=== PATIENT | female | born 1950 ===

== ENCOUNTER 2020-08-29 14:57 | Emergency (ER) | payer MEDICARE, OTHER ==
--- NOTE | 2020-08-29 15:45 | EDM.PDOC ---
<Yordan Irene Ricardo - Last Filed: 08/29/20 18:14> ED HPI GENERAL MEDICAL PROBLEM - General Chief Complaint: Cardiovascular Problem Stated Complaint: AMBULANCE Time Seen by Provider: 08/29/20 15:36 Source of Information: Reports: Patient History Limitations: Reports: No Limitations - History of Present Illness INITIAL COMMENTS - FREE TEXT/NARRATIVE: 70 y/o F c/o intermittent pain between her shoulder blades and CP. The pain is sharp in nature and lasts minutes to hours. On Wednesday pt began experiencing pain in her R lower back that gradually began progressing up her back and then finally settled between her shoulder blades. August 14 pt was put on Levothyroxine by her PA Lai Snow. Pt states she took the med at night for the first three nights and it gave her a severe vaughn which prevented her from sleeping. Pt contacted her provider who had her begin taking the medication in the morning. Yesterday pt had 3 episodes where she became severely shaky and cold all of which lasted around an hour. At the present the pt is pain free but her clothes are soaked from perspiration and her heart feels like its beating fast. Denies fever, cough, vision prob, nausea db, abd pn, constipation, trouble with urination, diarrhea, drugs or etoh. Onset: Gradual Duration: Day(s): Location: Reports: Generalized Quality: Reports: Sharp Severity: Moderate Improves with: Reports: None Worsens with: Reports: None - Related Data Allergies Allergy/AdvReac Type Severity Reaction Status Date / Time No Known Allergies Allergy Verified 08/29/20 15:46 Home Meds: Home Meds Furosemide 20 mg PO DAILY 08/29/20 [History] Irbesartan [Avapro] 150 mg PO DAILY 08/29/20 [History] Levothyroxine 25 mcg PO ACBREAKFAST 08/29/20 [History] Zolpidem [Ambien] 10 mg PO BEDTIME 08/29/20 [History] atorvaSTATin [Lipitor] 20 mg PO BEDTIME 08/29/20 [History] ED ROS GENERAL - Review of Systems Review Of Systems: Comprehensive ROS is negative, except as noted in HPI. ED EXAM, GENERAL - Physical Exam Exam: See Below Exam Limited By: No Limitations General Appearance: Alert, WD/WN, No Apparent Distress Eye Exam: Bilateral Eye: PERRL Ears: Normal External Exam, Normal Canal, Hearing Grossly Normal, Normal TMs Ear Exam: Bilateral Ear: Auricle Normal, Canal Normal, TM normal Nose: Normal Inspection, Normal Mucosa, No Blood Throat/Mouth: Normal Inspection, Normal Lips, Normal Teeth, Normal Gums, Normal Oropharynx, Normal Voice, No Airway Compromise Head: Atraumatic, Normocephalic Neck: Normal Inspection, Supple, Non-Tender, Full Range of Motion Respiratory/Chest: No Respiratory Distress, Lungs Clear, Normal Breath Sounds, No Accessory Muscle Use, Chest Non-Tender Cardiovascular: Normal Peripheral Pulses, Regular Rate, Rhythm, No Edema, No Gallop, No JVD, No Murmur, No Rub, Tachycardia GI/Abdominal: Soft, Non-Tender (Female) Exam: Deferred Rectal (Female) Exam: Deferred Back Exam: Normal Inspection, Full Range of Motion Extremities: Normal Inspection, Normal Range of Motion, Non-Tender, Normal Capillary Refill, No Pedal Edema Neurological: Alert, Oriented, CN II-XII Intact, Normal Cognition, Normal Gait, Normal Reflexes, No Motor/Sensory Deficits Psychiatric: Normal Affect, Normal Mood Skin Exam: Warm, Intact, Diaphoretic Departure - Departure Time of Disposition: 18:14 Disposition: DC/Tfer to [facility] 02 Reason for Transfer *Q: Primary PCI Indicated Clinical Impression: Cholecystitis, acute with cholelithiasis Qualifiers: Biliary obstruction: without biliary obstruction Qualified Code(s): K80.00 - Calculus of gallbladder with acute cholecystitis without obstruction Forms: ED Department Discharge, Interfacility Transfer EMTPASQUALE <Nii Sauceda - Last Filed: 08/29/20 18:16> Course - Vital Signs Last Recorded V/S: Last Vital Signs Temp 97.9 F 08/29/20 15:00 Pulse 105 H 08/29/20 15:00 Resp 18 08/29/20 15:00 BP 116/57 L 08/29/20 15:00 Pulse Ox 100 08/29/20 15:00 - Orders/Labs/Meds Orders: Active Orders 24 hr Category Date Time Status EKG Documentation Completion [RC] STAT Care 08/29/20 15:34 Active COVID-19/FLU A+B [MOLEC] Stat Lab 08/29/20 17:08 Received CULTURE BLOOD [BC] Stat Lab 08/29/20 17:25 Received CULTURE BLOOD [BC] Stat Lab 08/29/20 17:36 Received CULTURE URINE [RM] Stat Lab 08/29/20 16:22 Received Blood Culture x2 Reflex Set [OM.PC] Stat Oth 08/29/20 17:07 Ordered Labs: Laboratory Tests 08/29/20 08/29/20 08/29/20 Range/Units 15:10 15:10 15:10 WBC 22.8 H (5.0-10.0) 10^3/uL RBC 3.91 L (4.2-5.4) 10^6/uL Hgb 12.1 (12.0-16.0) g/dL Hct 36.4 L (37.0-47.0) % MCV 93.1 (80-100) fL MCH 30.9 (27.0-34.0) pg MCHC 33.2 (33.0-35.0) g/dL Plt Count 193 D (150-450) 10^3/uL Neut % (Auto) 91.2 H (42.2-75.2) % Lymph % (Auto) 2.2 L (20.5-50.1) % [place] % (Auto) 6.5 (2-8) % Eos % (Auto) 0.0 L (1.0-3.0) % Baso % (Auto) 0.1 (0.0-1.0) % Add Manual Diff Yes Neutrophils % (Manual) 80 H (42-75) % Band Neutrophils % 11 % Lymphocytes % (Manual) 4 L (20-50) % Monocytes % (Manual) 5 (2-8) % Sodium 135 L (136-145) mmol/L Potassium 4.0 (3.5-5.1) mmol/L Chloride 98 (98-107) mmol/L Carbon Dioxide 24 (21-32) mmol/L Anion Gap 17.0 H (7-13) mEq/L BUN 31 H (7-18) mg/dL Creatinine 1.54 H (0.55-1.02) mg/dL Est Cr Clr Drug Dosing TNP Estimated GFR (MDRD) 33 BUN/Creatinine Ratio 20.1 (No establ ref range) Glucose 184 H (70-99) mg/dL Lactic Acid 2.3 H* (0.4-2.0) mmol/L Calcium 8.6 (8.5-10.1) mg/dL Magnesium 1.8 (1.8-2.4) mg/dL Total Bilirubin 1.5 H (0.2-1.0) mg/dL AST 29 (15-37) U/L ALT 34 (14-59) U/L Alkaline Phosphatase 139 H (46-116) U/L Troponin I < 0.017 (0.000-0.056) ng/mL C-Reactive Protein 24.8 H (0.0-0.9) mg/dL Total Protein 6.8 (6.4-8.2) g/dL Albumin 3.3 L (3.4-5.0) g/dL Globulin 3.5 Albumin/Globulin Ratio 0.94 Amylase (25-115) U/L Lipase (73-393) U/L Free T4 1.48 H (0.76-1.46) ng/dL TSH, Ultra Sensitive 0.86 (0.36-3.74) uIU/mL Urine Color (YELLOW) Urine Appearance (CLEAR) Urine pH (5.0-9.0) Ur Specific [place] (1.005-1.030) Urine Protein (NEGATIVE) Urine Glucose (UA) (NEGATIVE) Urine Ketones (NEGATIVE) Urine Occult Blood (NEGATIVE) Urine Nitrite (NEGATIVE) Urine Bilirubin (NEGATIVE) Urine Urobilinogen (0.2-1.0) mg/dL Ur Leukocyte Esterase (NEGATIVE) U Hyaline Cast (Auto) Urine RBC /HPF Urine WBC (0-5/HPF) /HPF Ur Epithelial Cells (NOT SEEN) /HPF Urine Bacteria (0-FEW/HPF) /HPF Urine Mucus (NOT SEEN) /LPF 08/29/20 08/29/20 Range/Units 15:10 16:22 WBC (5.0-10.0) 10^3/uL RBC (4.2-5.4) 10^6/uL Hgb (12.0-16.0) g/dL Hct (37.0-47.0) % MCV (80-100) fL MCH (27.0-34.0) pg MCHC (33.0-35.0) g/dL Plt Count (150-450) 10^3/uL Neut % (Auto) (42.2-75.2) % Lymph % (Auto) (20.5-50.1) % [place] % (Auto) (2-8) % Eos % (Auto) (1.0-3.0) % Baso % (Auto) (0.0-1.0) % Add Manual Diff Neutrophils % (Manual) (42-75) % Band Neutrophils % % Lymphocytes % (Manual) (20-50) % Monocytes % (Manual) (2-8) % Sodium (136-145) mmol/L Potassium (3.5-5.1) mmol/L Chloride (98-107) mmol/L Carbon Dioxide (21-32) mmol/L Anion Gap (7-13) mEq/L BUN (7-18) mg/dL Creatinine (0.55-1.02) mg/dL Est Cr Clr Drug Dosing Estimated GFR (MDRD) BUN/Creatinine Ratio (No establ ref range) Glucose (70-99) mg/dL Lactic Acid (0.4-2.0) mmol/L Calcium (8.5-10.1) mg/dL Magnesium (1.8-2.4) mg/dL Total Bilirubin (0.2-1.0) mg/dL AST (15-37) U/L ALT (14-59) U/L Alkaline Phosphatase (46-116) U/L Troponin I (0.000-0.056) ng/mL C-Reactive Protein (0.0-0.9) mg/dL Total Protein (6.4-8.2) g/dL Albumin (3.4-5.0) g/dL Globulin Albumin/Globulin Ratio Amylase 13 L (25-115) U/L Lipase 31 L (73-393) U/L Free T4 (0.76-1.46) ng/dL TSH, Ultra Sensitive (0.36-3.74) uIU/mL Urine Color [place] (YELLOW) Urine Appearance Slightly cloudy (CLEAR) Urine pH 5.0 (5.0-9.0) Ur Specific [place] >= 1.030 (1.005-1.030) Urine Protein 30 H (NEGATIVE) Urine Glucose (UA) Negative (NEGATIVE) Urine Ketones 15 H (NEGATIVE) Urine Occult Blood Negative (NEGATIVE) Urine Nitrite Negative (NEGATIVE) Urine Bilirubin Moderate H (NEGATIVE) Urine Urobilinogen 1.0 (0.2-1.0) mg/dL Ur Leukocyte Esterase Small H (NEGATIVE) U Hyaline Cast (Auto) Many Urine RBC 0-5 /HPF Urine WBC 20-30 H (0-5/HPF) /HPF Ur Epithelial Cells Many H (NOT SEEN) /HPF Urine Bacteria Few (0-FEW/HPF) /HPF Urine Mucus Few H (NOT SEEN) /LPF Meds: Medications Discontinued Medications Generic Name Dose Route Start Last Admin Trade Name Quocq PRN Reason Stop Dose Admin Sodium Chloride 1,000 mls @ 999 mls/hr 08/29/20 16:20 08/29/20 16:49 Normal Saline IV 08/29/20 17:20 999 mls/hr .BOLUS ONE Administration Piperacillin Sod/Tazobactam 100 mls @ 200 mls/hr 08/29/20 16:22 08/29/20 16:49 Sod 3.375 gm/ Sodium Chloride IV 08/29/20 16:51 200 mls/hr ONETIME ONE Administration Sodium Chloride 1,000 mls @ 999 mls/hr 08/29/20 16:30 08/29/20 17:00 Normal Saline IV 08/29/20 17:30 999 mls/hr .BOLUS ONE Administration - Radiology Interpretation Free Text/Narrative:: [facility] Final Radiology Report Call: [phone] assistance Online chat: [email or web address] Name: NANCY MARIE Age: 70Years F Date: 08/29/2020 SSN: -- : 1950 Study: CR CHEST 2V Requesting Physician: Yordan Irene Images: 2 Addl Studies: Provided Clinical History: pain between the shoulder blades with white count Contrast: Contrast Medium: Contrast Amount: Contrast Method: CONFIDENTIALITY STATEMENT This report is intended only for use by the referring physician, and only in accordance with law. If you received this in error, call [phone]. Page 1 of 1 PROCEDURE INFORMATION: Exam: XR Chest Exam date and time: 08/29/2020 4:42 PM Age: 70 years old Clinical indication: Other: Pain; Additional info: Pain between the shoulder blades with white count TECHNIQUE: Imaging protocol: XR of the chest. Views: 2 views. COMPARISON: No relevant prior studies available. FINDINGS: Lungs: There is mild nonspecific patchy linear density at right lung base which could be atelectatic, or inflammatory. The left lung is clear. Pleural spaces: No pleural effusion. No pneumothorax. Heart/Mediastinum: The heart is not enlarged. A moderate hiatal hernia is present. Bones/joints: No acute bony findings are identified. IMPRESSION: There is mild nonspecific patchy linear density at right lung base which could be atelectatic, or inflammatory. Thank you for allowing us to participate in the care of your patient. Dictated and Authenticated by: Coy Looney MD 08/29/2020 5:09 PM Central Time ([place] & [place]) [facility] Final Radiology Report Call: [phone] assistance Online chat: [email or web address] Name: NANCY MARIE Age: 70Years F Date: 08/29/2020 SSN: -- : 1950 Study: CT ABDOMEN PELVIS WO CONT Requesting Physician: Yordan Irene Images: [id number] Addl Studies: Provided Clinical History: sepsis with abdominal pain, elevated bilirubin,pn Contrast: Without Contrast Medium: Contrast Amount: Contrast Method: Page 1 of 2 PROCEDURE INFORMATION: Exam: CT Abdomen And Pelvis Without Contrast Exam date and time: 08/29/2020 5:08 PM Age: 70 years old Clinical indication: Other: Pain; Additional info: Sepsis with abdominal pain, elevated bilirubin, pn TECHNIQUE: Imaging protocol: Computed tomography of the abdomen and pelvis without contrast. Radiation optimization: All CT scans at this facility use at least one of these dose optimization techniques: automated exposure control; mA and/or kV adjustment per patient size (includes targeted exams where dose is matched to clinical indication); or iterative reconstruction. COMPARISON: No relevant prior studies available. FINDINGS: Lungs: The visualized lung bases are clear. Minor non-specific patchy linear density at both bases. These changes could be inflammatory or could reflect atelectasis. Mediastinal space: A large hiatal hernia is present. Liver: Mild hepatomegaly.The liver is otherwise unremarkable. Gallbladder and bile ducts: The gallbladder is mildly distended. Multiple faintly opaque gallstones suspect in the gallbladder lumen. Gallbladder wall is thickened and edematous. Common bile duct diameter is 6 mm. There is no intrahepatic bile duct dilation. Pancreas: The pancreas is undergone extensive fatty replacement. No focal pancreatic abnormality seen. Spleen: The spleen is normal. Adrenal glands: The adrenal glands are normal. Kidneys and ureters: 2 mm calculus lower pole right kidney. Renal contours lobular. Renal cortices are suboptimally assessed. There is no evidence of hydronephrosis. The ureters are normal. Stomach and bowel: There is no evidence of colitis/diverticulitis. NANCY MARIE | Final Radiology Report CONFIDENTIALITY STATEMENT This report is intended only for use by the referring physician, and only in accordance with law. If you received this in error, call [phone]. Page 2 of 2 Appendix: A normal appendix is identified. Intraperitoneal space: Question collateral vessels in the root of the mesentery and about the distal esophagus and proximal stomach. The umbilical vein is prominent may be recanalized. Vasculature: There is moderate diffuse calcific atherosclerotic plaque. There is no aortic aneurysm. Lymph nodes: No pelvic adenopathy. There is no adenopathy. Urinary bladder: Bladder is normal. Reproductive: Uterine calcifications suggest the presence of uterine leiomyomata. No adnexal mass. Bones/joints: Grade 1 degenerative spondylolisthesis L4 upon 5. Soft tissues: See "Intraperitoneal space" finding. IMPRESSION: 1. Abnormal gallbladder. Correlate with LFTs. Rule out cholecystitis. 2. No biliary ductal dilatation. 3. Mild hepatomegaly. Question portal hypertension. 4. Atrophic pancreas. 5. Nonobstructing right renal calculus. Additional renal cortical assessment could be considered. The renal cortices are suboptimally assessed and the kidneys have a lobular contour. 6. Other findings as described Thank you for allowing us to participate in the care of your patient. Dictated and Authenticated by: Coy Looney MD 08/29/2020 5:36 PM Central Time ([place] & [place]) - Re-Assessments/Exams Free Text/Narrative Re-Assessment/Exam: 08/29/20 I personally performed or re-performed the physical examination and medical decision making. I have verified all student documentation or findings, including history, physical exam and/or medical decision making. Departure - Departure Time of Disposition: 17:56 Condition: Fair, Serious Sepsis Event Note (ED) - Focused Exam Vital Signs: Vital Signs Temp Pulse Resp BP Pulse Ox 08/29/20 15:00 97.9 F 105 H 18 116/57 L 100
[2020-08-29 16:06] LABS: CHLORIDE,CL 98 mmol/L (98-107); SODIUM,NA 135 mmol/L (136-145)
[2020-08-29] MEDS ORDERED: Sodium Chloride 0.9% 1,000 ML IV ONE ×2 (16:20→16:30)
[2020-08-29] MEDS ORDERED: Piperacillin/Tazobactam 3.375 GM in Sodium Chloride 0.9% 100 ML IV ONE (16:22)
--- NOTE | 2020-08-29 17:09 | CR ---
PROCEDURE INFORMATION: Exam: XR Chest Exam date and time: 08/29/2020 4:42 PM Age: 70 years old Clinical indication: Other: Pain; Additional info: Pain between the shoulder blades with white count TECHNIQUE: Imaging protocol: XR of the chest. Views: 2 views. COMPARISON: No relevant prior studies available. FINDINGS: Lungs: There is mild nonspecific patchy linear density at right lung base which could be atelectatic, or inflammatory. The left lung is clear. Pleural spaces: No pleural effusion. No pneumothorax. Heart/Mediastinum: The heart is not enlarged. A moderate hiatal hernia is present. Bones/joints: No acute bony findings are identified. IMPRESSION: There is mild nonspecific patchy linear density at right lung base which could be atelectatic, or inflammatory.
--- NOTE | 2020-08-29 17:37 | CT ---
PROCEDURE INFORMATION: Exam: CT Abdomen And Pelvis Without Contrast Exam date and time: 08/29/2020 5:08 PM Age: 70 years old Clinical indication: Other: Pain; Additional info: Sepsis with abdominal pain, elevated bilirubin, pn TECHNIQUE: Imaging protocol: Computed tomography of the abdomen and pelvis without contrast. Radiation optimization: All CT scans at this facility use at least one of these dose optimization techniques: automated exposure control; mA and/or kV adjustment per patient size (includes targeted exams where dose is matched to clinical indication); or iterative reconstruction. COMPARISON: No relevant prior studies available. FINDINGS: Lungs: The visualized lung bases are clear. Minor non-specific patchy linear density at both bases. These changes could be inflammatory or could reflect atelectasis. Mediastinal space: A large hiatal hernia is present. Liver: Mild hepatomegaly.The liver is otherwise unremarkable. Gallbladder and bile ducts: The gallbladder is mildly distended. Multiple faintly opaque gallstones suspect in the gallbladder lumen. Gallbladder wall is thickened and edematous. Common bile duct diameter is 6 mm. There is no intrahepatic bile duct dilation. Pancreas: The pancreas is undergone extensive fatty replacement. No focal pancreatic abnormality seen. Spleen: The spleen is normal. Adrenal glands: The adrenal glands are normal. Kidneys and ureters: 2 mm calculus lower pole right kidney. Renal contours lobular. Renal cortices are suboptimally assessed. There is no evidence of hydronephrosis. The ureters are normal. Stomach and bowel: There is no evidence of colitis/diverticulitis. Appendix: A normal appendix is identified. Intraperitoneal space: Question collateral vessels in the root of the mesentery and about the distal esophagus and proximal stomach. The umbilical vein is prominent may be recanalized. Vasculature: There is moderate diffuse calcific atherosclerotic plaque. There is no aortic aneurysm. Lymph nodes: No pelvic adenopathy. There is no adenopathy. Urinary bladder: Bladder is normal. Reproductive: Uterine calcifications suggest the presence of uterine leiomyomata. No adnexal mass. Bones/joints: Grade 1 degenerative spondylolisthesis L4 upon 5. Soft tissues: See "Intraperitoneal space" finding. IMPRESSION: 1. Abnormal gallbladder. Correlate with LFTs. Rule out cholecystitis. 2. No biliary ductal dilatation. 3. Mild hepatomegaly. Question portal hypertension. 4. Atrophic pancreas. 5. Nonobstructing right renal calculus. Additional renal cortical assessment could be considered. The renal cortices are suboptimally assessed and the kidneys have a lobular contour. 6. Other findings as described
[2020-08-29 18:24] LABS: CORONAVIRUS COVID-19 NAA NEGATIVE (NEGATIVE)
== END 2020-08-29 18:20 ==
LOC: DL.ED 14:57
DX: K80.00 Calculus of gallbladder with acute cholecystitis without obstruction (principal); Z79.899 Other long term (current) drug therapy; Z20.822 Contact with and (suspected) exposure to COVID-19; Z20.828 Contact with and (suspected) exposure to other viral communicable diseases
CPT/HCPCS: 0240U; 36415; 71046; 74176; 80053; 81001; 82150; 83605; 83690; 83735; 84439; 84443; 84484; 85025; 86140; 87040; 87086; 93005; 93010; 96365; 99284; 99285; J2543; J7030

== ENCOUNTER 2022-03-23 08:12 | Emergency (ER) | payer MEDICARE, OTHER ==
[2022-03-23 09:03] LABS: RESPIRATORY SYNCYTIAL VIR NAA NEGATIVE (NEGATIVE)
[2022-03-23 09:08] LABS: CORONAVIRUS COVID-19 NAA POSITIVE (NEGATIVE)
== END 2022-03-23 09:31 | disposition home or self-care (01) ==
LOC: DL.ED 08:12
DX: U07.1 COVID-19 (principal); I10 Essential (primary) hypertension; E03.9 Hypothyroidism, unspecified; E66.9 Obesity, unspecified; Z68.33 Body mass index [BMI] 33.0-33.9, adult; Z79.82 Long term (current) use of aspirin; Z79.899 Other long term (current) drug therapy
CPT/HCPCS: 0241U; 99283

== ENCOUNTER 2022-07-21 05:25 | Day surgery (SDC) | payer MEDICARE, OTHER ==
[2022-07-21] MEDS ORDERED: Midazolam 1 MG/ML 2 ML SDV IV ONE ×3 (05:26→06:44)
[2022-07-21] MEDS ORDERED: fentaNYL 100 MCG/2 ML SDV IV ONE ×3 (05:26→06:41)
[2022-07-21] MEDS ORDERED: Dextrose 5%-0.45% NaCl 1,000 ML IV SCH (06:00)
[2022-07-21] MEDS ORDERED: Midazolam 1 MG/ML 2 ML SDV ONE (06:10)
[2022-07-21] MEDS ORDERED: fentaNYL 100 MCG/2 ML SDV ONE (06:11)
== END 2022-07-21 08:30 | disposition home or self-care (01) ==
LOC: DL.ENDO 05:25
PROVIDERS: ATTEND Internal Medicine Gastroenterology
DX: K22.89 Other specified disease of esophagus (principal); K25.9 Gastric ulcer, unspecified as acute or chronic, without hemorrhage or perforation; K44.9 Diaphragmatic hernia without obstruction or gangrene; K22.2 Esophageal obstruction; D50.0 Iron deficiency anemia secondary to blood loss (chronic); E66.09 Other obesity due to excess calories; I10 Essential (primary) hypertension; E78.5 Hyperlipidemia, unspecified; E03.9 Hypothyroidism, unspecified; G47.00 Insomnia, unspecified; R73.9 Hyperglycemia, unspecified; Z98.890 Other specified postprocedural states; Z90.49 Acquired absence of other specified parts of digestive tract; Z68.31 Body mass index [BMI] 31.0-31.9, adult
CPT/HCPCS: 87077; 88305; J2250; J3010; J7042

== ENCOUNTER 2022-07-23 05:19 | Day surgery (SDC) | payer MEDICARE, OTHER ==
[~2022-07-23 05:19] MED LIST: Dextrose 5%-0.45% NaCl 1,000 ML IV SCH; Sodium Chloride 0.9% 10 ML Syringe FLUSH PRN; Sodium Chloride 0.9% 10 ML Syringe FLUSH SCH
[2022-07-23] MEDS ORDERED: Midazolam 1 MG/ML 2 ML SDV IV ONE ×7 (05:20→06:45)
[2022-07-23] MEDS ORDERED: fentaNYL 100 MCG/2 ML SDV IV ONE ×7 (05:20→06:56)
[2022-07-23] MEDS ORDERED: Dextrose 5%-0.45% NaCl 1,000 ML IV SCH (05:30)
[2022-07-23] MEDS ORDERED: Sodium Chloride 0.9% 10 ML Syringe FLUSH PRN (05:30)
[2022-07-23] MEDS ORDERED: Midazolam 1 MG/ML 2 ML SDV ONE (06:09)
[2022-07-23] MEDS ORDERED: fentaNYL 100 MCG/2 ML SDV ONE (06:10)
== END 2022-07-23 09:22 | disposition home or self-care (01) ==
LOC: DL.ENDO 05:19
PROVIDERS: ATTEND Internal Medicine Gastroenterology
DX: D50.0 Iron deficiency anemia secondary to blood loss (chronic) (principal); K57.30 Diverticulosis of large intestine without perforation or abscess without bleeding; I10 Essential (primary) hypertension; E78.5 Hyperlipidemia, unspecified; E03.9 Hypothyroidism, unspecified; E66.09 Other obesity due to excess calories; G47.00 Insomnia, unspecified; Z68.31 Body mass index [BMI] 31.0-31.9, adult; Z98.890 Other specified postprocedural states; Z79.899 Other long term (current) drug therapy
CPT/HCPCS: J2250; J3010; J7042

== ENCOUNTER 2023-09-05 20:37 | Emergency (ER) | payer MEDICARE, OTHER ==
[2023-09-05] MEDS ORDERED: Potassium Chloride 10 MEQ in Premix Bag 1 BAG IV ONE (23:39)
[2023-09-05] MEDS ORDERED: Sodium Chloride 0.9% 1,000 ML IV ONE (23:39)
== END 2023-09-05 23:40 | disposition home or self-care (01) ==
LOC: DL.ED 20:37
DX: K22.2 Esophageal obstruction (principal); E78.00 Pure hypercholesterolemia, unspecified; I10 Essential (primary) hypertension; E03.9 Hypothyroidism, unspecified; Z79.899 Other long term (current) drug therapy; Z86.19 Personal history of other infectious and parasitic diseases; Z86.16 Personal history of COVID-19; Z90.49 Acquired absence of other specified parts of digestive tract; Z87.891 Personal history of nicotine dependence
CPT/HCPCS: 99283